=== PATIENT | male | born 1955 | race Native Hawaiian/Other Pacific Islander ===

== ENCOUNTER 2020-01-07 15:38 | Outpatient (CLI) | payer MEDICARE, BC ==
--- NOTE | 2020-01-07 16:51 | XRAY Report ---
PROCEDURE: Hips 2V BILAT INDICATIONS: PELVIS HIP BILATERAL TECHNIQUE: AP image of the pelvis was acquired, as well as frog-leg views of each hip. Were acquired . COMPARISON: None available. FINDINGS: Bones: No fractures or dislocations. No suspicious bony lesions. The visualized pelvic ring appear s intact. There is moderate superior joint space narrowing seen involving both hips. There is associated remode ling change, with subchondral sclerosis and osteophyte formation. Soft tissues: No suspicious soft tissue calcifications or masses. Right groin clips are seen. IMPRESSION: Moderate degenerative changes are seen of both hips. Reviewed by: Javier Reed MD on 01/07/2020 3:50 PM [place] Approved by: Javier Reed MD on 01/07/2020 3:50 PM [place] Station ID: [id number]
== END 2020-01-07 15:39 | disposition home or self-care (01) ==
LOC: DI 15:38 → EDBD 15:38 → DI 15:39
PROVIDERS: ATTEND Physician Assistant
DX: M16.0 Bilateral primary osteoarthritis of hip (principal); M79.604 Pain in right leg
CPT/HCPCS: 73521

== ENCOUNTER 2020-05-18 07:12 | Day surgery (SDC) | payer MEDICARE, BC ==
[2020-05-18] MEDS ORDERED: LACTATED RINGERS 1,000 ML IV ONE ×2 (07:55→09:34)
[2020-05-18] MEDS ORDERED: fentaNYL 250 MCG/5 ML VIAL ONE (08:46)
[2020-05-18] MEDS ORDERED: MIDAZOLAM 2 MG/2 ML VIAL ONE ×3 (08:46→09:22)
[2020-05-18 09:53] VITALS: BP 123/76
== END 2020-05-18 07:13 | disposition home or self-care (01) ==
LOC: SDS 07:12
PROVIDERS: ATTEND Surgery
PROC: 0DBP8ZZ Excision of Rectum, Via Natural or Artificial Opening Endoscopic (ICD-10-PCS; principal; 2020-05-18 08:30)
DX: R19.4 Change in bowel habit (principal); D12.8 Benign neoplasm of rectum; I10 Essential (primary) hypertension; E11.9 Type 2 diabetes mellitus without complications; Z87.891 Personal history of nicotine dependence
CPT/HCPCS: 45380; J3010; J7120

== ENCOUNTER 2020-08-29 09:30 | Outpatient (CLI) | payer MEDICARE, BC ==
--- NOTE | 2020-08-29 15:51 | Ultrasound Report ---
PROCEDURE: Carotid Doppler Complete INDICATIONS: DIZZINESS AND GIDDINESS, HYPERTENSION TECHNIQUE: Color and pulse Doppler interrogation was performed of both carotid systems, with image documentation and velocity measurements. COMPARISON: None. FINDINGS: Right side: Brachial blood pressure: 110/63 mm Hg. Common carotid artery peak systolic velocity: 111 cm/sec. Internal carotid artery peak systolic velocity: 90 cm/sec. Internal carotid artery end diastolic velocity: 37 cm/sec. External carotid artery peak systolic velocity: 106 cm/sec. ICA/CCA peak systolic ratio: 0.81 . Vincent scale imaging description: No visualized plaque Percent internal carotid artery stenosis: Normal . Vertebral artery: Flow direction is antegrade. Left side: Brachial blood pressure: 116/64 mm Hg. Common carotid artery peak systolic velocity: 138 cm/sec. Internal carotid artery peak systolic velocity: 82 cm/sec. Internal carotid artery end diastolic velocity: 32 cm/sec. External carotid artery peak systolic velocity: 111 cm/sec. ICA/CCA peak systolic ratio: 0.59 . Vincent scale imaging description: No visualized plaque. Percent internal carotid artery stenosis: Normal . Vertebral artery: Flow direction is antegrade. IMPRESSION: No visualized plaque or stenosis. The estimate of stenosis included in the report of the imaging study was calculated using the NASCET method Reviewed by: Hue Sommers MD on 08/29/2020 3:50 PM PDT Approved by: Hue Sommers MD on 08/29/2020 3:50 PM PDT Station ID: [id number]
== END 2020-08-29 09:31 | disposition home or self-care (01) ==
LOC: DI 09:30
PROVIDERS: ATTEND Physician Assistant
DX: E11.65 Type 2 diabetes mellitus with hyperglycemia (principal); R42 Dizziness and giddiness; I10 Essential (primary) hypertension; E78.00 Pure hypercholesterolemia, unspecified
CPT/HCPCS: 93880

== ENCOUNTER 2021-08-12 12:35 | Outpatient (CLI) | payer MEDICARE, BC ==
--- NOTE | 2021-08-12 17:07 | XRAY Report ---
PROCEDURE: Lumbar Spine 2 View INDICATIONS: LOW BACK PAIN, LEFT KNEE PAIN TECHNIQUE: 2 views of the lumbar spine were acquired. COMPARISON: None. FINDINGS: Bones: 5 [id number] vertebrae are present. There is normal bony alignment. No vertebral body compression fractures. No suspicious bony lesions. Mild degenerative disc disease noted throughout t he lumbar spine. Mild L3-L4, L4-L5 and L5-S1 facet arthropathy. Soft tissues: Large amount of stool identified in the visualized colon. Probable large gallstone. IMPRESSION: 1. Multilevel degenerative disc disease. 2. Multilevel facet arthropathy. 3. No fracture. No acute osseous lesion. If there is continued clinical concern for pathology, then M RI should be considered for further evaluation. 4. Probable large gallstone. 5. Severe colonic fecal loading suggestive of constipation. Reviewed by: Urszula Forman MD, PhD on 08/12/2021 5:05 PM PDT Approved by: Urszula Forman MD, PhD on 08/12/2021 5:05 PM PDT Station ID: [id number]
--- NOTE | 2021-08-13 23:49 | XRAY Report ---
PROCEDURE: Knee 3 View LT INDICATIONS: LEFT KNEE PAIN TECHNIQUE: 3 views of the left knee were acquired. COMPARISON: None. FINDINGS: Bones: No fractures or dislocations. There is mild to moderate space narrowing in the medial compar tment with subchondral sclerosis and minimal osteophytosis. Slight lateral shift of the patella is al so demonstrated with mild joint space narrowing in the patellofemoral compartment laterally. No suspi cious bony lesions. There is diffuse osteopenia. Soft tissues: No joint effusion. No suspicious soft tissue calcifications. IMPRESSION: 1. Osteoarthritic changes including mild to moderate joint space narrowing in the medial compartment. 2. Osteopenia. Reviewed by: Reji Jean MD on 08/13/2021 11:51 PM PDT Approved by: Reji Jean MD on 08/13/2021 11:51 PM PDT Station ID: [id number]
== END 2021-08-12 12:36 | disposition home or self-care (01) ==
LOC: DI 12:35
PROVIDERS: ATTEND Physician Assistant
DX: M17.12 Unilateral primary osteoarthritis, left knee (principal); M85.88 Other specified disorders of bone density and structure, other site; M47.816 Spondylosis without myelopathy or radiculopathy, lumbar region; M51.36 Other intervertebral disc degeneration, lumbar region

== ENCOUNTER 2021-09-05 13:36 | Outpatient (CLI) | payer MEDICARE, BC ==
--- NOTE | 2021-09-05 18:44 | XRAY Report ---
PROCEDURE: Foot 3 View LT INDICATIONS: LT FOOT PAIN TECHNIQUE: 3 views of the foot were acquired. COMPARISON: None FINDINGS: Bones: Osteopenia transverse fracture through the base of the fifth metatarsal shows softening the fr acture lines probably reflects an subacute fracture. Remainder the osseous structures unremarkable. Soft tissues: No tibiotalar joint effusion. Achilles tendon appears normal. Small vessel atheroscl erotic vascular calcification noted. IMPRESSION: Subacute base of the fifth metatarsal fracture Small vessel sclerotic vascular calcification Osteopenia Reviewed by: John Parr MD on 09/05/2021 5:43 PM [facility] Approved by: John Parr MD on 09/05/2021 5:43 PM ARIC Station ID: [id number]
== END 2021-09-05 13:37 | disposition home or self-care (01) ==
LOC: DI 13:36
PROVIDERS: ATTEND Physician Assistant
DX: S92.352A Displaced fracture of fifth metatarsal bone, left foot, initial encounter for closed fracture (principal); I70.208 Unspecified atherosclerosis of native arteries of extremities, other extremity; M85.872 Other specified disorders of bone density and structure, left ankle and foot

== ENCOUNTER 2022-01-13 08:00 | Outpatient (CLI) | payer MEDICARE, BC ==
--- NOTE | 2022-01-13 16:39 | XRAY Report ---
PROCEDURE: Foot 3 View LT INDICATIONS: LEFT 5TH MT FX TECHNIQUE: 3 views of the foot were acquired. COMPARISON: 09/05/2021 FINDINGS: Bones: Linear lucency through the base of the fifth metatarsal is less distinct than the prior exam. Evidence of bridging callus. Osteopenia. Soft tissues: No tibiotalar joint effusion. Achilles tendon appears normal. Diffuse atheroscleroti c small vessel calcification IMPRESSION: Healing base of the fifth metatarsal fracture Atherosclerotic vascular calcification Osteopenia Reviewed by: John Parr MD on 01/13/2022 3:37 PM [facility] Approved by: John Parr MD on 01/13/2022 3:37 PM AKDT Station ID: [id number]
== END 2022-01-13 23:59 | disposition home or self-care (01) ==
LOC: DI.WOS 08:00
PROVIDERS: ATTEND Physician Assistant Surgical
DX: S92.355D Nondisplaced fracture of fifth metatarsal bone, left foot, subsequent encounter for fracture with routine healing (principal); M85.872 Other specified disorders of bone density and structure, left ankle and foot

== ENCOUNTER 2022-01-14 08:00 | Outpatient (CLI) | payer MEDICARE, BC ==
--- NOTE | 2022-01-15 00:03 | XRAY Report ---
PROCEDURE: Knee 2 View LT INDICATIONS: LEFT KNEE PAIN TECHNIQUE: 2 views of the left knee(s) were acquired. COMPARISON: None. FINDINGS: Bones: No fractures or dislocations. Moderate medial femoral-tibial compartment osteoarthritic bae ges in left knee is seen with joint space narrowing and subchondral sclerosis. No suspicious bony les ions. Soft tissues: No suspicious soft tissue calcifications. IMPRESSION: Moderate medial femoral-tibial compartment osteoarthritis in left knee. No acute fractur e or dislocation. Reviewed by: Curtis Valles MD on 01/15/2022 12:01 AM PDT Approved by: Curtis Valles MD on 01/15/2022 12:01 AM PDT Station ID: [id number]
== END 2022-01-14 23:59 | disposition home or self-care (01) ==
LOC: DI.WOS 08:00
PROVIDERS: ATTEND Physician Assistant Surgical
DX: M17.12 Unilateral primary osteoarthritis, left knee (principal)

== ENCOUNTER 2022-02-27 13:52 | Outpatient (CLI) | payer MEDICARE, BC ==
--- NOTE | 2022-02-27 15:01 | DEXA Report ---
PROCEDURE: Dexa Spine and/or Hip INDICATIONS: OSTEOPENIA TECHNIQUE: Dual energy x-ray absorptiometry (DXA) was performed on a [employer] System. Regions measur ed are the AP Spine, femoral neck, and if needed forearm. COMPARISON: None. FINDINGS: Lumbar Spine: Bone Mineral Density 1.119 g/cm/cm,T score -0.8, normal Left Hip: Bone Mineral Density 0.732 g/cm/cm,T score -2.6, osteoporosis Left Femoral Neck: Bone Mineral Density 0.650 g/cm/cm, T score -3.2, osteoporosis (T score greater or equal to -1.0: NORMAL) (T score from -1.1 to -2.4: OSTEOPENIA) (T score less than or equal to -2.5 to: OSTEOPOROSIS) Impression: Osteoporosis within the left hip and femoral neck. Patients with diagnosis of osteoporosis or osteopenia should have regular bone mineral density assess ment. For those eligible for Medicare, routine testing is allowed once every 2 years. Testing frequ ency can be increased for patients who have rapidly progressing disease or for those who are receivin g medical therapy to restore bone mass. Reviewed by: Hue Sommers MD on 02/27/2022 2:59 PM PST Approved by: Hue Sommers MD on 02/27/2022 2:59 PM PST Station ID: [id number]
== END 2022-02-27 13:53 | disposition home or self-care (01) ==
LOC: DI 13:52
PROVIDERS: ATTEND Physician Assistant
DX: M81.0 Age-related osteoporosis without current pathological fracture (principal)

== ENCOUNTER 2022-06-03 08:33 | Outpatient (CLI) | payer MEDICARE, BC ==
--- NOTE | 2022-06-03 14:12 | Ultrasound Report ---
PROCEDURE: Abdomen Limited INDICATIONS: GALLSTONES TECHNIQUE: Real-time focused scanning was performed of the abdomen, with image documentation. COMPARISON: None. FINDINGS: Liver: Liver is normal in size and demonstrates increased echotexture. Gallbladder: There are no stones. No gallbladder wall thickening, pericholecystic fluid collection or no sonographic Pantoja sign. Biliary ducts: Intrahepatic bile ducts are non-dilated. Extrahepatic bile duct caliber measures mm. Normal is 6-7 mm or less in diameter, or 10 mm or less post-cholecystectomy. Pancreas: Visualized portions of the pancreas are sonographically normal. Spleen: Spleen is normal in size and homogeneous in echotexture. Right Kidney: Rightr kidney is normal in size during 11.3 cm in length. No hydronephrosis or nephro lithiasis. No solid masses. IVC: Intrahepatic inferior vena cava is patent. Miscellaneous: No free abdominal fluid. IMPRESSION: 1. Cholelithiasis. No ultrasound findings to suggest acute cholecystitis. 2. Liver demonstrates increased echotexture suggesting fatty infiltration. Other hepatocellular disea se could have a similar appearance. Please correlate with liver functions. Reviewed by: Natalie Johnson MD on 06/03/2022 2:11 PM PST Approved by: Natalie Johnson MD on 06/03/2022 2:11 PM PST Station ID: [id number]
== END 2022-06-03 08:34 | disposition home or self-care (01) ==
LOC: DI 08:33
PROVIDERS: ATTEND Student in an Organized Health Care Education/Training Program
DX: K80.20 Calculus of gallbladder without cholecystitis without obstruction (principal)

== ENCOUNTER 2022-12-11 08:00 | Outpatient (CLI) | payer MEDICARE, BC ==
--- NOTE | 2022-12-11 17:47 | XRAY Report ---
PROCEDURE: Shoulder 3 View RT INDICATIONS: RIGHT SHOULDER PAIN TECHNIQUE: 4 views of the shoulder were acquired. COMPARISON: None. FINDINGS: Bones: No fractures or dislocations. Moderate acromioclavicular joint osteoarthritic changes are see n with joint space narrowing, subchondral sclerosis and downward osteophyte formation. No suspicious bony lesions. Visualized ribs appear intact. Soft tissues: No suspicious soft tissue calcifications. IMPRESSION: No acute bony abnormality. Moderate acromioclavicular joint osteoarthritis. Reviewed by: Curtis Peterson MD on 12/11/2022 5:46 PM PDT Approved by: Curtis Peterson MD on 12/11/2022 5:46 PM PDT Station ID: [id number]
== END 2022-12-11 23:59 | disposition home or self-care (01) ==
LOC: DI.WOS 08:00
PROVIDERS: ATTEND Physician Assistant Surgical
DX: M19.011 Primary osteoarthritis, right shoulder (principal)

== ENCOUNTER 2023-03-30 15:47 | Outpatient (CLI) | payer MEDICARE, BC ==
[2023-03-30 16:06] LABS: BASOPHILS % (AUTO) 0.4 %; EOSINOPHILS % (AUTO) 0.1 %; HCT - HEMATOCRIT 39.2 % (42.0-52.0); LYMPHOCYTES # (AUTO) 1.7 10^3/uL (1.5-3.5); LYMPHOCYTES % (AUTO) 23.6 %; MEAN CORPUSCULAR HEMOGLOBIN 31.6 pg (27.0-31.0); MEAN CORPUSCULAR HGB CONC 33.2 g/dL (32.0-36.0); MEAN CORPUSCULAR VOLUME 95.4 fL (80.0-94.0); MEAN PLATELET VOLUME 10.2 fL (7.4-11.4); MONOCYTES # (AUTO) 0.6 10^3/uL (0.0-1.0); MONOCYTES % (AUTO) 7.7 %; NEUTROPHILS # (AUTO) 4.9 10^3/uL (1.5-6.6); NEUTROPHILS % (AUTO) 68.1 %; PLT - PLATELET COUNT 190 10^3/uL (130-450); RED BLOOD COUNT 4.11 10^6/uL (4.70-6.10); RED CELL DISTRIBUTION WIDTH 13.7 % (12.0-15.0); WHITE BLOOD COUNT 7.3 x10^3/uL (4.8-10.8)
[2023-03-30 16:19] LABS: CALCIUM 9.3 mg/dL (8.5-10.3); POTASSIUM 4.2 mmol/L (3.5-4.5)
== END 2023-03-30 15:48 | disposition home or self-care (01) ==
LOC: LAB 15:47
PROVIDERS: ATTEND Family Medicine
DX: J06.9 Acute upper respiratory infection, unspecified (principal)
CPT/HCPCS: 36415; 80048; 85025